=== PATIENT | male | born 1975 | race Caucasian/White ===

== ENCOUNTER → 2017-06-21 | Outpatient (CLI) | payer MEDICAID ==
[2017-06-21 10:46] LABS: Basophils # (A) 0.1 k/uL (0-0.2); Basophils % (A) 1 %; Eosinophils # (A) 0.3 k/uL (0-0.7); Eosinophils % (A) 3 %; HCT 48.3 % (39.0-53.0); HGB 16.2 gm/dL (13.0-17.5); Lymphocytes # (A) 2.2 k/uL (1.0-4.8); Lymphocytes % (A) 27 %; MCH 29.7 pg (25.0-35.0); MCHC 33.5 g/dL (31.0-37.0); MCV 88.8 fL (80.0-100.0); Mean Platelet Volume 6.8; Monocytes # (A) 0.4 k/uL (0-1.0); Monocytes % (A) 6 %; Neutrophils % (A) 62 %; Platelet Count 205 k/uL (150-450); RBC 5.44 m/uL (4.30-5.90); RDW 13.4 % (11.5-15.5)
[2017-06-21 11:06] LABS: ALT 27 U/L (21-72); AST 20 U/L (17-59); Alkaline Phosphatase 84 U/L (38-126); Anion Gap 12 mmol/L; Blood Urea Nitrogen 13 mg/dL (9-20); Calcium 9.3 mg/dL (8.4-10.2); Carbon Dioxide 25 mmol/L (22-30); Chloride 105 mmol/L (98-107); Cholesterol 181 mg/dL (<200); Glucose 100 mg/dL (74-99); HDL Cholesterol 50 mg/dL (40-60); LDL Cholesterol,Calculated 117 mg/dL (0-99); Potassium 4.4 mmol/L (3.5-5.1); Sodium 142 mmol/L (137-145); Total Bilirubin 0.6 mg/dL (0.2-1.3); Total Protein 6.4 g/dL (6.3-8.2); Triglycerides 72 mg/dL (<150)
[2017-06-21 11:16] LABS: T4, Free (Free Thyroxine) 1.26 ng/dL (0.78-2.19)
[2017-06-21 23:12] LABS: Hemoglobin A1C 5.5 % (4.0-6.0)
== END | disposition home or self-care (01) ==
LOC: LABWHC1 10:15
PROVIDERS: ATTEND Internal Medicine
DX: E03.9 Hypothyroidism, unspecified (principal); R73.9 Hyperglycemia, unspecified; Z13.220 Encounter for screening for lipoid disorders; N50.89 Other specified disorders of the male genital organs
CPT/HCPCS: 36415; 80053; 80061; 83036; 84403; 84439; 84443; 85025

== ENCOUNTER → 2017-08-30 | Outpatient (CLI) | payer MEDICAID | LOC: LABWHC1 10:31 | PROVIDERS: ATTEND Internal Medicine | DX: E03.9 Hypothyroidism, unspecified (principal) | CPT/HCPCS: 36415; 84443 ==

== ENCOUNTER → 2017-11-26 | Outpatient (CLI) | payer MEDICAID ==
[2017-11-26 16:24] LABS: Basophils # (A) 0.1 k/uL (0-0.2); Basophils % (A) 1 %; Eosinophils # (A) 0.3 k/uL (0-0.7); Eosinophils % (A) 3 %; HCT 47.3 % (39.0-53.0); HGB 15.9 gm/dL (13.0-17.5); Lymphocytes # (A) 2.7 k/uL (1.0-4.8); Lymphocytes % (A) 33 %; MCH 30.5 pg (25.0-35.0); MCHC 33.5 g/dL (31.0-37.0); Mean Platelet Volume 6.5; Monocytes # (A) 0.4 k/uL (0-1.0); Monocytes % (A) 5 %; Neutrophils # (A) 4.5 k/uL (1.3-7.7); Neutrophils % (A) 56 %; Platelet Count 198 k/uL (150-450); RDW 13.4 % (11.5-15.5)
[2017-11-26 16:45] LABS: ALT 26 U/L (21-72); AST 22 U/L (17-59); Albumin 4.4 g/dL (3.5-5.0); Alkaline Phosphatase 81 U/L (38-126); Anion Gap 10 mmol/L; Blood Urea Nitrogen 16 mg/dL (9-20); C Reactive Protein 10.2 mg/L (<10.0); Calcium 9.6 mg/dL (8.4-10.2); Carbon Dioxide 24 mmol/L (22-30); Chloride 106 mmol/L (98-107); Creatine Kinase 116 U/L (55-170); Glucose 82 mg/dL (74-99); Potassium 4.1 mmol/L (3.5-5.1); Sodium 140 mmol/L (137-145); Total Bilirubin 0.5 mg/dL (0.2-1.3); Total Protein 7.2 g/dL (6.3-8.2); Uric Acid 6.5 mg/dL (3.5-8.5)
[2017-11-26 17:00] LABS: T4, Free (Free Thyroxine) 1.16 ng/dL (0.78-2.19)
[2017-11-26 17:03] LABS: Appearance,Urine Clear (Clear); Bilirubin,Urine Negative (Negative); Blood,Urine Trace (Negative); Color,Urine Light Yellow; Glucose,Urine (UA) Negative (Negative); Ketones,Urine Negative (Negative); Leukocyte Esterase,Urine Negative (Negative); Mucus,Urine Rare /hpf; Nitrite,Urine Negative (Negative); Protein,Urine Negative (Negative); RBC,Urine <1 /hpf (0-5); Specific Gravity,Urine 1.009 (1.001-1.035); Urobilinogen,Urine <2.0 mg/dL (<2.0)
[2017-11-26 17:34] LABS: Erythrocyte Sedimentation Rate 11 mm/hr (0-15)
[2017-11-27 03:42] LABS: Protein, Total 6.8 g/dL (6.2-8.2)
[2017-11-27 03:51] LABS: Vitamin D 25 Hydroxy 16.5 ng/mL (30.0-100.0)
[2017-11-27 04:01] LABS: Cardiolipin Ab IgG Interp NEGATIVE (NEGATIVE); Cardiolipin Ab IgM Interp NEGATIVE (NEGATIVE); Cardiolipin IgM Antibody 7.3 U/mL; Centromere Antibody Interp NEGATIVE (NEGATIVE); DNA Double-Stranded NEGATIVE (NEGATIVE); Scleroderma SC-70 Ab <0.2 AI
[2017-11-27 04:11] LABS: Aldolase 4.4 U/L (1.2-7.6)
[2017-11-27 04:14] LABS: Angiotensin-1 Converting Enz. 43 U/L (8-52)
[2017-11-27 04:24] LABS: Hepatitis C IgG Antibody Non-Reactive (Non-Reactive)
[2017-11-27 09:44] LABS: ANA Pattern Speckled
[2017-11-27 12:43] LABS: HLA B27 NEGATIVE
[2017-11-27 12:57] LABS: Albumin 4.35 g/dL (3.80-4.90); Gamma Globulin 0.86 g/dL (0.70-1.50)
[2017-11-27 13:25] LABS: C-ANCA <1:20 Titer (<1:20); P-ANCA <1:20 Titer (<1:20)
[2017-11-27 13:43] LABS: APTT 43 Sec(s) (<43); Dilute Russell Viper Venom 44 Sec(s) (<44)
== END ==
LOC: LABWHC1 15:37
PROVIDERS: ATTEND Physician Assistant Medical
DX: R76.8 Other specified abnormal immunological findings in serum (principal)
CPT/HCPCS: 36415; 80053; 81001; 82085; 82164; 82306; 82550; 83883; 84165; 84439; 84443; 84550; 85025; 85613; 85652; 85730; 86038; 86039; 86140; 86147; 86160; 86162; 86225; 86235; 86255; 86334; 86803; 86812; 87340

== ENCOUNTER → 2018-03-24 | Outpatient (CLI) | payer MEDICAID ==
--- NOTE | 2018-03-24 14:48 | XR ---
EXAMINATION TYPE: XR chest 2V DATE OF EXAM: 03/24/2018 COMPARISON: NONE HISTORY: Upper chest pain TECHNIQUE: Frontal and lateral views of the chest are obtained. FINDINGS: There is no focal air space opacity, pleural effusion, or pneumothorax seen. The cardiac silhouette size is within normal limits. The osseous structures are intact. Thoracic spondylosis is present. There is increased AP diameter of the chest which may be indicative of underlying COPD. Int erstitium appears somewhat prominently. Aorta is dense. IMPRESSION: No acute cardiopulmonary process. Suspect underlying interstitial lung disease. Chest CT may be of benefit.
== END ==
LOC: RADXRYALE 11:29
PROVIDERS: ATTEND Internal Medicine
DX: M54.6 Pain in thoracic spine (principal)
CPT/HCPCS: 71046

== ENCOUNTER → 2018-03-31 | Outpatient (CLI) | payer MEDICAID ==
--- NOTE | 2018-03-31 10:05 | CT ---
EXAMINATION TYPE: CT chest w con DATE OF EXAM: 03/31/2018 COMPARISON: Chest x-ray from one week ago. HISTORY: COPD, smoker CT DLP: 659 mGycm. Automated Exposure Control for Dose Reduction was Utilized. TECHNIQUE: CT scan of the thorax is performed following with IV Contrast, patient injected with 100 mL of Isovue 300. FINDINGS: LUNGS: Moderate underlying emphysematous change is present. There are some scattered upper lung nodul es bilaterally. For reference there is 5 x 4 mm posterior left upper lobe nodule axial image 14. For reference there is anterior left upper lobe subpleural 5 x 4 mm nodule axial image 16. There is anter ior right upper lobe 8 x 5 mm nodule axial image 16. There are additional scattered smaller nodules i dentified bilaterally throughout the upper and midlungs. Largest nodule measures 13 x 6 mm in the lef t lower lobe abutting the major fissure axial image 31. Dependent atelectasis bilateral lower lobes i s seen. No pleural effusion or pneumothorax is noted bilaterally. Tracheobronchial tree is patent MEDIASTINUM: There are prominent thoracic lymph nodes involving mediastinum and bilateral hilar regio n, for reference right paratracheal lymph node measures 1.2 x 1.0 cm axial image 16. No cardiomegaly or pericardial effusion is seen. OTHER: Liver is heterogeneously hypodense suggesting fatty infiltration. There is moderate multilevel anterior and lateral spurring in the mid to lower thoracic spine. IMPRESSION: Moderate emphysematous change with scattered nodules measuring up to 1.3 x 0.6 cm. Border line and slightly enlarged thoracic lymph nodes. No suspicious acute pulmonary process. Neoplasm marj ot be excluded however, follow PET/CT is advised.
== END | disposition home or self-care (01) ==
LOC: RADCTMAIN 08:19
PROVIDERS: ATTEND Internal Medicine
DX: J43.9 Emphysema, unspecified (principal); R59.0 Localized enlarged lymph nodes; R91.8 Other nonspecific abnormal finding of lung field
CPT/HCPCS: 71260; Q9967

== ENCOUNTER → 2018-03-31 | Outpatient (CLI) | payer MEDICAID ==
--- NOTE | 2018-03-31 10:35 | US ---
EXAMINATION TYPE: US abdomen comp/pelvis limited DATE OF EXAM: 03/31/2018 COMPARISON: NONE CLINICAL HISTORY: 43-year-old male R10.11 right upper quadrant pain. Pt states right ABD pain x 1 mon th, microscopic hematuria TECHNIQUE: Multiple sonographic images of the abdomen and bladder are obtained. FINDINGS: EXAM MEASUREMENTS: Liver Length: 15.8 cm Gallbladder Wall: 0.2 cm CBD: 0.4 cm Spleen: 11.9 cm Right Kidney: 11.4 x 5.5 x 5.5 cm Left Kidney: 11.1 x 5.4 x 5.4 cm Pancreas: Obscured by bowel gas Liver: Echogenic with possible fatty sparing near GB Gallbladder: wnl CBD: wnl Spleen: wnl Right Kidney: wnl Left Kidney: wnl Upper IVC: wnl Abd Aorta: wnl Bladder: wnl Bilateral Jets Seen No IMPRESSION: 1. Hepatic steatosis with areas of focal fatty sparing along the gallbladder fossa. Correlate with LF Ts, lipid profile, and patient risk factors. 2. Ureteral jets not seen during the course of the exam. Correlate with patient's renal function. 3. Suboptimal visualization of the pancreas. Otherwise, no other specific abnormality seen.
== END | disposition home or self-care (01) ==
LOC: RADUSWWP 07:40
PROVIDERS: ATTEND Internal Medicine
DX: K76.0 Fatty (change of) liver, not elsewhere classified (principal)
CPT/HCPCS: 76700; 76857

== ENCOUNTER → 2018-05-16 | Outpatient (CLI) | payer MEDICAID ==
--- NOTE | 2018-05-18 06:26 | PE ---
EXAMINATION TYPE: PET CT fusion skull to thigh DATE OF EXAM: 05/16/2018 COMPARISON: CT chest March 31, 2018. HISTORY: Solitary pulmonary nodule, abnormal CT. TECHNIQUE: Following the intravenous administration of 8.34 mCi of F-18 FDG, whole body images are p erformed from the skull base to the midthigh. Images are reviewed on the computer in the coronal, ax ial, and sagittal planes. Reconstructed rotating images are created on independent workstation and r eviewed on the computer. A noncontrast CT is performed in conjunction with the PET scan. SCAN: Initial Scan FINDINGS: SKULL BASE AND NECK: No suspicious hypermetabolic uptake. CHEST, MEDIASTINUM, AND HILAR REGION: Background moderate underlying emphysematous change is redemons trated. There are scattered small pulmonary nodules redemonstrated bilaterally. For reference subcent imeter nodule right upper lobe axial image 87 and superior aspect right lower lobe axial image 88 as well as right midlung nodule axial image 109 and left mid lung nodule axial image 107. No hypermetabo lic uptake is identified in the thorax including nodules or prominent thoracic lymph nodes including largest right pericarinal lymph node measuring 1.3 x 0.9 cm axial image 90. ABDOMEN AND PELVIS: No suspicious hypermetabolic uptake. No adrenal masses are seen. OSSEOUS STRUCTURES: No suspicious hypermetabolic uptake. OTHER CT: Main pulmonary artery is prominent at 3.2 cm on axial image 98. Liver is low dense relative to spleen consistent with diffuse fatty infiltration. Prostate gland is enlarged in size, bladder wall is mildly thickened. Correlate for outlet obstructio n related to BPH. IMPRESSION: No suspicious hypermetabolic uptake is identified to suggest malignancy. Presence of mult iple small nodules however requires follow-up. Advise contrast enhanced chest CT in 3-6 months time t o ensure stability of nodules.
== END | disposition home or self-care (01) ==
LOC: RADPETMAIN 09:53
PROVIDERS: ATTEND Internal Medicine Critical Care Medicine
DX: R91.8 Other nonspecific abnormal finding of lung field (principal)
CPT/HCPCS: 78815; A9552

== ENCOUNTER → 2019-02-20 | Outpatient (CLI) | payer MEDICAID ==
--- NOTE | 2019-02-20 11:28 | CT ---
EXAMINATION TYPE: CT chest w con DATE OF EXAM: 02/20/2019 COMPARISON: HISTORY: Pulmonary nodules CT DLP: 496.1 mGycm, Automated exposure control for dose reduction was used. CONTRAST: Performed injected with 100 mL of Isovue 300. TECHNIQUE: Axial images were obtained at 5 mm thick sections. Reconstructed images are reviewed on [employer] computer in the coronal plane. FINDINGS: Portion of the thyroid visualized is normal. There is a 0.4 cm density at the posterior right apex. Series 4 image 11. There is a 0.7 cm nodule in the posterior left apex. Series 4 image 14. There is a 1.0 cm nodule in the anterior right upper lob e. Series 4 image 18. A posterior right upper lobe nodule measuring 0.8 cm is present. Series 4 image 19 there is a punctate nodular density within the periphery of the right lung. Series 4 image 23. Th ere are couple of nodules within the left lung series 4 image 29 measuring 0.8 x 1.2 cm in size. Coup le small nodules may be within the right lung at the same level within the right middle lobe. There i s a nodule within the periphery of the right mid lung near the lung measuring 1.1 cm. Series 4 image 32. Couple of nodules are major fissure on the right mid lung measuring 0.9-0.8 cm. Series 4 image 34 -35. Peripheral lingular nodule is also present at this level. Small nodules in the anterior right mi ddle lobe. Series 4 image 38 measuring 0.5 cm. There is a 1.2 cm pretracheal lymph node present. A left perihilar node measures 1.1 cm. The ascendi ng aorta diameter at the level of the main pulmonary artery is 3.6 cm. The main pulmonary artery hector meter at the bifurcation is 3.[address] sections are obtained through the upper abdomen. Abdomen is essentially unremarkable. IMPRESSIONS: 1. Multiple bilateral nodules greater in the upper lung vences discussed above. Largest on the left m easures 1.2 cm a 0.8 cm enlarged on the right measures 1.1 cm. These appear stable. Continued monitor ing is recommended. 2. Enlarged mediastinal adenopathy discussed above. This appears stable. 3. Emphysematous changes.
== END | disposition home or self-care (01) ==
LOC: RADCTMAIN 08:02
PROVIDERS: ATTEND Internal Medicine Critical Care Medicine
DX: J43.9 Emphysema, unspecified (principal); R59.0 Localized enlarged lymph nodes; R91.1 Solitary pulmonary nodule; M06.89 Other specified rheumatoid arthritis, multiple sites; Z88.0 Allergy status to penicillin
CPT/HCPCS: 71260; Q9967

== ENCOUNTER → 2019-02-20 | Outpatient (CLI) | payer MEDICAID ==
[2019-02-20 08:39] LABS: Basophils # (A) 0.1 k/uL (0-0.2); Basophils % (A) 1 %; Eosinophils # (A) 0.2 k/uL (0-0.7); Eosinophils % (A) 3 %; HGB 15.9 gm/dL (13.0-17.5); Lymphocytes # (A) 1.6 k/uL (1.0-4.8); Lymphocytes % (A) 23 %; MCH 30.9 pg (25.0-35.0); MCHC 33.1 g/dL (31.0-37.0); MCV 93.2 fL (80.0-100.0); Mean Platelet Volume 6.8; Monocytes # (A) 0.4 k/uL (0-1.0); Monocytes % (A) 5 %; Neutrophils # (A) 4.5 k/uL (1.3-7.7); Neutrophils % (A) 66 %; Platelet Count 189 k/uL (150-450); RBC 5.15 m/uL (4.30-5.90); RDW 13.1 % (11.5-15.5); WBC 6.9 k/uL (3.8-10.6)
[2019-02-20 08:43] LABS: Appearance,Urine Clear (Clear); Bilirubin,Urine Negative (Negative); Blood,Urine Trace (Negative); Color,Urine Yellow; Glucose,Urine (UA) Negative (Negative); Ketones,Urine Negative (Negative); Leukocyte Esterase,Urine Negative (Negative); Mucus,Urine Rare /hpf; Nitrite,Urine Negative (Negative); Protein,Urine Negative (Negative); RBC,Urine 2 /hpf (0-5); Specific Gravity,Urine 1.018 (1.001-1.035); Squamous Epithelial Cell,Urine <1 /hpf (0-4); Urobilinogen,Urine <2.0 mg/dL (<2.0); WBC,Urine 1 /hpf (0-5)
[2019-02-20 11:59] LABS: Erythrocyte Sedimentation Rate 10 mm/hr (0-15)
[2019-02-20 17:19] LABS: Protein, Total 6.4 g/dL (6.2-8.2)
[2019-02-20 17:23] LABS: African American GFR (CKD) 119.1 (60.0-200.0); Albumin 4.5 g/dL (3.80-4.90); Albumin/Globulin Ratio 2.37 (1.60-3.17); Anion Gap 8.1 mmol/L (4.00-12.00); BUN/Creat Ratio 18.89 Ratio (12.00-20.00); C Reactive Protein 0.9 mg/dL (0.0-0.8); Calcium 9.3 mg/dL (8.7-10.3); Carbon Dioxide 22.9 mmol/L (21.6-31.8); Globulin 1.9 g/dL (1.6-3.3); Non-African American GFR(CKD) 102.8 (60.0-200.0); Potassium 4.4 mmol/L (3.5-5.5); Total Bilirubin 0.6 mg/dL (0.3-1.2); Total Protein 6.4 g/dL (6.2-8.2); Uric Acid 6.5 mg/dL (3.7-8.7)
[2019-02-20 17:30] LABS: T4, Free (Free Thyroxine) 1.6 ng/dL (0.80-1.80)
[2019-02-20 17:48] LABS: Hepatitis B Surface Antigen Non-Reactive (Non-Reactive); Hepatitis C IgG Antibody Non-Reactive (Non-Reactive)
[2019-02-22 08:50] LABS: Free Kappa Lt Chain Qnt, Serum 1.19 mg/dL (0.33-1.94)
[2019-02-22 11:51] LABS: APTT 41 Sec(s) (<43); Dilute Russell Viper Venom 40 Sec(s) (<44)
[2019-02-22 12:23] LABS: HLA B27 NEGATIVE
[2019-02-22 13:26] LABS: Albumin 4.02 g/dL (3.80-4.90); Gamma Globulin 0.76 g/dL (0.70-1.50)
[2019-02-22 14:09] LABS: Anti-Smith Ab Interp NEGATIVE (NEGATIVE); Cardiolipin Ab IgG Interp NEGATIVE (NEGATIVE); Cardiolipin Ab IgM Interp NEGATIVE (NEGATIVE); Cardiolipin IgM Antibody 9.2 U/mL; Centromere Antibody <0.2 AI; Centromere Antibody Interp NEGATIVE (NEGATIVE); Cyclic Citrullinated Pep IgG NEGATIVE (NEGATIVE); DNA Double-Stranded NEGATIVE (NEGATIVE); Scleroderma SC-70 Ab <0.2 AI
[2019-02-22 14:35] LABS: C-ANCA <1:20 Titer (<1:20)
[2019-02-22 15:01] LABS: Angiotensin-1 Converting Enz. 41 U/L (8-52)
[2019-02-23 10:03] LABS: Aldolase 3.6 U/L (1.2-7.6)
[2019-02-23 11:46] LABS: ANA Pattern Speckled
== END | disposition home or self-care (01) ==
LOC: LABWHC1 08:10
PROVIDERS: ATTEND Internal Medicine Rheumatology
DX: M06.89 Other specified rheumatoid arthritis, multiple sites (principal)
CPT/HCPCS: 36415; 80053; 81001; 82085; 82164; 82306; 82550; 83516; 83883; 84165; 84439; 84443; 84550; 85025; 85613; 85652; 85730; 86038; 86039; 86140; 86147; 86160; 86162; 86200; 86225; 86235; 86255; 86334; 86431; 86803; 86812; 87340

== ENCOUNTER → 2020-02-24 | Outpatient (CLI) | payer MEDICAID ==
--- NOTE | 2020-02-24 11:29 | CT ---
EXAMINATION TYPE: CT chest w con DATE OF EXAM: 02/24/2020 COMPARISON: 02/20/2019 and 03/31/2018 HISTORY: 44-year-old male R91.8 Abnormal lung field TECHNIQUE: Contiguous axial scanning of the chest after the administration of 100 mL of Isovue 300. Coronal/sagittal reconstructions performed. CT DLP: 632mGycm. Automatic exposure control utilized for a dose reduction. FINDINGS: Heart normal size without pericardial effusion. Borderline ectatic ascending aorta at 3.6 cm. Conventional arch vessel branching anatomy. Nonenlarged and mildly enlarged mediastinal lymph nodes are redemonstrated measuring up to 1.1 cm in the right parietal region, 1 cm at the anterior left hilum, and 8 mm at the right hilum. No new or pr ogressive lymphadenopathy seen within the thorax. There is diffuse with mild emphysema. Some strandy atelectasis and scarring in the inferior lingula. Numerous bilateral pulmonary nodules are redemonstrated, largest measuring 1.3 cm. These are unchange d back to 03/31/2018. No consolidation or pleural effusion. Spleen mildly enlarged at 14.1 cm. Bones: Mild anterior endplate spondylosis lower thoracic spine. No osseous destructive process. IMPRESSION: 1. COPD with mild emphysema. 2. Numerous bilateral pulmonary nodules measuring up to 1.3 cm, unchanged for just under 2 years (nehemiah k to at least 03/31/2018). Consider an additional precautionary one-year follow-up. 3. A couple borderline to mildly enlarged mediastinal lymph nodes also remain unchanged suggesting a chronic postinflammatory etiology. 4. Mild splenomegaly at 14.1 cm.
[2020-02-24 12:02] LABS: ALT 30 U/L (4-49); AST 28 U/L (17-59); African American GFR (CKD) >90 (>60 ml/min/1.73 sqM); Albumin 4.5 g/dL (3.5-5.0); Alkaline Phosphatase 88 U/L (38-126); Anion Gap 8 mmol/L; Appearance,Urine Clear (Clear); Bilirubin,Urine Negative (Negative); Blood Urea Nitrogen 18 mg/dL (9-20); Blood,Urine Negative (Negative); C Reactive Protein 9.7 mg/L (<10.0); Calcium 9.9 mg/dL (8.4-10.2); Carbon Dioxide 24 mmol/L (22-30); Chloride 105 mmol/L (98-107); Color,Urine Yellow; Creatine Kinase 98 U/L (55-170); Glucose 100 mg/dL (74-99); Glucose,Urine (UA) Negative (Negative); Ketones,Urine Negative (Negative); Leukocyte Esterase,Urine Negative (Negative); Nitrite,Urine Negative (Negative); Non-African American GFR(CKD) >90 (>60 ml/min/1.73 sqM); Potassium 4.7 mmol/L (3.5-5.1); Protein,Urine Negative (Negative); Sodium 137 mmol/L (137-145); Specific Gravity,Urine 1.026 (1.001-1.035); Total Bilirubin 0.8 mg/dL (0.2-1.3); Total Protein 7.6 g/dL (6.3-8.2); Uric Acid 6.6 mg/dL (3.5-8.5); Urobilinogen,Urine <2.0 mg/dL (<2.0)
[2020-02-24 12:32] LABS: Basophils # (A) 0.1 k/uL (0-0.2); Basophils % (A) 2 %; Eosinophils # (A) 0.2 k/uL (0-0.7); Eosinophils % (A) 3 %; HGB 16.9 gm/dL (13.0-17.5); Lymphocytes # (A) 1.8 k/uL (1.0-4.8); Lymphocytes % (A) 26 %; MCH 31.6 pg (25.0-35.0); MCHC 35.2 g/dL (31.0-37.0); MCV 89.8 fL (80.0-100.0); Mean Platelet Volume 7.9; Monocytes # (A) 0.5 k/uL (0-1.0); Monocytes % (A) 7 %; Neutrophils # (A) 4.3 k/uL (1.3-7.7); Neutrophils % (A) 61 %; Platelet Count 194 k/uL (150-450); RBC 5.34 m/uL (4.30-5.90); RDW 13.1 % (11.5-15.5); WBC 7.1 k/uL (3.8-10.6)
[2020-02-24 12:59] LABS: Erythrocyte Sedimentation Rate 10 mm/hr (0-15)
[2020-02-24 20:52] LABS: Protein, Total 6.8 g/dL (6.2-8.2); Rheumatoid Factor, Qnt 7 IU/mL (0-15)
[2020-02-24 21:34] LABS: Anti-Smith Ab Interp NEGATIVE (NEGATIVE); Cardiolipin Ab IgG Interp NEGATIVE (NEGATIVE); Cardiolipin Ab IgM Interp NEGATIVE (NEGATIVE); Cardiolipin IgM Antibody 6.5 U/mL; Centromere Antibody <0.2 AI; Centromere Antibody Interp NEGATIVE (NEGATIVE); Cyclic Citrull Pep IgG Unit 1.3 U/mL; Cyclic Citrullinated Pep IgG NEGATIVE (NEGATIVE); DNA Double-Stranded NEGATIVE (NEGATIVE); Scleroderma SC-70 Ab <0.2 AI
[2020-02-25 00:01] LABS: Hepatitis B Surface Antigen Non-Reactive (Non-Reactive); Hepatitis C IgG Antibody Non-Reactive (Non-Reactive)
[2020-02-25 09:06] LABS: Aldolase 5.9 U/L (1.2-7.6)
[2020-02-25 09:08] LABS: Angiotensin-1 Converting Enz. 46 U/L (8-52)
[2020-02-25 11:15] LABS: Free Kappa Lt Chain Qnt, Serum 1.45 mg/dL (0.33-1.94)
[2020-02-25 12:24] LABS: HLA B27 NEGATIVE
[2020-02-25 12:42] LABS: APTT 43 Sec(s) (<43); Dilute Russell Viper Venom 43 Sec(s) (<44)
[2020-02-25 13:39] LABS: ANA Pattern Centromere
[2020-02-25 14:25] LABS: Histone Antibody 0.4 UNITS (<1.0)
[2020-02-25 15:14] LABS: Albumin 4.19 g/dL (3.80-4.90)
[2020-02-25 15:22] LABS: C-ANCA <1:20 Titer (<1:20)
== END | disposition home or self-care (01) ==
LOC: RADCTMAIN 09:11
PROVIDERS: ATTEND Internal Medicine Critical Care Medicine
DX: R91.8 Other nonspecific abnormal finding of lung field (principal); J43.9 Emphysema, unspecified; R59.9 Enlarged lymph nodes, unspecified; R76.8 Other specified abnormal immunological findings in serum
CPT/HCPCS: 86255; 86160 ×2; 86803; 86235 ×4; 86162; 86812; 84439; 80053; 85652; 83516; 82085; 82550; 82164; 84443; 84550; 85025; 85730; 86140; 87340; 86431; 85613; 81003; 83520; 84165; 82306; 86038 ×2; 86039; 86225; 86334; 83883; 86147; 86200; 71260; 36415; Q9967

== ENCOUNTER 2020-11-14 11:25 | Day surgery (SDC) | payer MEDICAID ==
[2020-11-09 14:46] VITALS: BMI 31.1
[~2020-11-14 11:25] MED LIST: LACTATED RINGERS 1,000 ML IV SCH
[2020-11-14 11:48] VITALS: RESP 16; TEMP 97.2
[2020-11-14] MEDS ORDERED: LIDOCAINE 1% (10MG/ML) FOR IV START INTRADERMA ONE (11:55)
[2020-11-14] MEDS ORDERED: MIDAZOLAM 2 MG/2 ML VIAL ONE (12:05)
[2020-11-14] MEDS ORDERED: PROPOFOL 10 MG/ML 20 ML VIAL IV ONE (12:05)
[2020-11-14] MEDS ORDERED: LIDOCAINE 1% INJ 10MG/ML (20 ML MDV) ONE (12:05)
[2020-11-14] MEDS ORDERED: fentaNYL (PF) 50 MCG/ML 2 ML AMP ONE (12:05)
--- NOTE | 2020-11-14 12:19 | P.PCN ---
Date of Procedure: 11/14/20 Preoperative Diagnosis: GERD Postoperative Diagnosis: Gastritis Duodenitis Procedure(s) Performed: EGD with biopsy Anesthesia: THANIA Surgeon: Abelino Serrato Pathology: other (Biopsies of esophagus, antrum, duodenal) Condition: stable Disposition: same day Indications for Procedure: 45-year-old male with recent increase in reflux. He was started on PPI with some success. He states he is also had some success with dietary changes. He presents today for upper endoscopy for further evaluation. Risks, benefits and alternatives were provided to the patient did provide consent prior to attending the endoscopy suite. Operative Findings: Gastritis Duodenitis Description of Procedure: The patient was brought to the endoscopy suite and placed in left lateral cutis position and adequate sedation was achieved using conscious sedation. A bite block was placed and an endoscope was placed in the oropharynx and advanced under endoscopic visualization. The endoscope was through the esophagus into the stomach, through the gastric antrum and into the pylorus. The third portion of duodenum was visualized. The endoscope was then slowly withdrawn. The first portion of the duodenum was noted to have inflammatory changes. Biopsies were taken. The antrum was noted to have inflammatory changes. Biopsies were taken. The gastric body distended normally and the gastric folds appeared normal and flattened with insufflation. A retroflexed view of the fundus and GE junction revealed no obvious hiatal hernia. The esophagus appeared endoscopically normal. Biopsies of the distal esophagus were taken. Excess air was removed and the scope was withdrawn and the procedure was completed. The patient was then sent to postanesthesia care unit in stable condition.
[2020-11-14 12:39] VITALS: BP 110/74; PULSE 60
== END 2020-11-14 13:04 | disposition home or self-care (01) ==
LOC: ORWHC2ENDO 11:25
PROVIDERS: ATTEND Surgery
DX: K29.80 Duodenitis without bleeding (principal); K21.9 Gastro-esophageal reflux disease without esophagitis; J44.9 Chronic obstructive pulmonary disease, unspecified; M19.90 Unspecified osteoarthritis, unspecified site; E03.9 Hypothyroidism, unspecified; Z98.890 Other specified postprocedural states; Z83.3 Family history of diabetes mellitus; Z80.1 Family history of malignant neoplasm of trachea, bronchus and lung; F17.210 Nicotine dependence, cigarettes, uncomplicated; Z79.890 Hormone replacement therapy; Z79.899 Other long term (current) drug therapy; Z88.0 Allergy status to penicillin
CPT/HCPCS: 88305; 43239; J2250; J2001; J3010; J2704

== ENCOUNTER → 2021-04-27 | Outpatient (CLI) | payer MEDICAID ==
--- NOTE | 2021-04-28 11:52 | CT ---
EXAMINATION TYPE: CT chest w con DATE OF EXAM: 04/27/2021 COMPARISON: 02/24/2020 HISTORY: ILD CT DLP: 522.6 mGycm Automated exposure control for dose reduction was used. TECHNIQUE: CT scan of the chest is performed with IV Contrast, patient injected with 100ml mL of Isovue 300. [place] P Images are created on CT scanner and reviewed. 3D reconstructed images are created on an [employer] workstation and reviewed. FINDINGS: LUNGS: There is diffuse with mild emphysema. Some strandy atelectasis and scarring in the inferior li ngula. Numerous bilateral pulmonary nodules are redemonstrated, largest measuring 1.3 cm. These are u nchanged. No focal pneumonia or pneumothorax. MEDIASTINUM: Nonenlarged and mildly enlarged mediastinal lymph nodes are redemonstrated measuring up to 1.1 cm in the right paratracheal region, 1 cm at the anterior left hilum, and 8 mm at the right hi lum. No new or progressive lymphadenopathy seen within the thorax. Aorta of normal caliber. No signif icant coronary artery calcification. OTHER: Mild anterior endplate spondylosis lower thoracic spine. No osseous destructive process. Spl een mildly enlarged at 14.1 cm. IMPRESSION: 1. COPD with mild emphysema. 2. Numerous bilateral pulmonary nodules measuring up to 1.3 cm, unchanged for 2 years (back to at [facility] 03/31/2018). Consider an additional precautionary one-year follow-up. 3. A couple borderline to mildly enlarged mediastinal lymph nodes also remain unchanged suggesting a chronic postinflammatory etiology. 4. Mild splenomegaly at 14.1 cm.
== END | disposition home or self-care (01) ==
LOC: RADCTMAIN 18:46
PROVIDERS: ATTEND Internal Medicine Critical Care Medicine
DX: J84.9 Interstitial pulmonary disease, unspecified (principal); J43.9 Emphysema, unspecified; R91.1 Solitary pulmonary nodule; R16.1 Splenomegaly, not elsewhere classified
CPT/HCPCS: 71260; Q9967